=== PATIENT | female | born 1960 | race Caucasian/White ===

== ENCOUNTER → 2018-05-19 | Outpatient (CLI) | payer OTHER ==
[2018-05-19] MEDS: LIDOCAINE 1% (MPF) 5 ML VIAL SC (11:15)
== END | disposition home or self-care (01) ==
LOC: RAD 09:57
DX: I88.9 Nonspecific lymphadenitis, unspecified (principal)
CPT/HCPCS: 36569; 71045; 76937

== ENCOUNTER → 2018-08-19 | Outpatient (CLI) | payer OTHER | END | disposition home or self-care (01) | LOC: VAS 08:53 | DX: M79.661 Pain in right lower leg (principal); R22.41 Localized swelling, mass and lump, right lower limb | CPT/HCPCS: 93971 ==